=== PATIENT | female | born 1990 | race Caucasian/White ===

== ENCOUNTER 2017-01-26 11:26 | Observation (INO) | payer SELFPAY ==
[~2017-01-26] VITALS: Ht 165.1 cm; Wt 79.4 kg
[2017-01-26 12:03] LABS: BILIRUBIN,URINE NEGATIVE (NEG); GLUCOSE,URINE NEGATIVE (NEG); NITRITE,URINE NEGATIVE (NEG); PH,URINE 6.5; PROTEIN,URINE NEGATIVE (NEG-TRACE)
--- NOTE | 2017-01-26 12:04 | PHYS DOC ---
Past Medical History Past Medical History: No Pertinent History Past Surgical History: Alcohol Use: None Drug Use: None Adult General Chief Complaint Chief Complaint: VAGINAL BLEEDING HPI HPI Patient is a 26 year old female presents to the emergency department with complaints of lower abdominal cramping and vaginal bleeding. She reports that she was and January 07 had a miscarriage. She states she was seen at [facility] at that time. She states she has had vaginal bleeding since January 07. She notes her last normal menstrual period prior to December a miscarriage was December 02. She states that she continues to have nausea. She denies chest pain, lightheadedness, dizziness. 7 para 3 SpAB 2 TAB 1 Review of Systems Review of Systems Constitutional: Denies fever or chills [] Eyes: Denies change in visual acuity, redness, or eye pain [] HENT: Denies nasal congestion or sore throat [] Respiratory: Denies cough or shortness of breath [] Cardiovascular: No additional information not addressed in HPI [] GI: Denies abdominal pain, nausea, vomiting, bloody stools or diarrhea [] : vaginal bleeding Musculoskeletal: Denies back pain or joint pain [] Integument: Denies rash or skin lesions [] Neurologic: Denies headache, focal weakness or sensory changes [] Endocrine: Denies polyuria or polydipsia [] Current Medications Current Medications Current Medications Medications (Trade) Dose Ordered Sig/Marilee Start Time Stop Time Status Last Admin Dose Admin Dexamethasone Sodium Phosphate (Decadron) 20 mg STK-MED ONCE 01/26/17 14:24 01/26/17 14:25 DC Famotidine (Pepcid) 20 mg STK-MED ONCE 01/26/17 14:24 01/26/17 14:25 DC Fentanyl Citrate (Fentanyl 2ml Vial) 100 mcg STK-MED ONCE 01/26/17 14:24 01/26/17 14:25 DC Lidocaine HCl (Lidocaine Pf 2% Vial) 5 ml STK-MED ONCE 01/26/17 14:24 01/26/17 14:25 DC Midazolam HCl (Versed) 2 mg STK-MED ONCE 01/26/17 14:24 01/26/17 14:25 DC Ondansetron HCl (Zofran) 4 mg STK-MED ONCE 01/26/17 14:24 01/26/17 14:25 DC Propofol 20 ml @ As Directed STK-MED ONCE 01/26/17 14:23 01/26/17 14:24 DC Succinylcholine Chloride (Anectine) 200 mg STK-MED ONCE 01/26/17 14:24 01/26/17 14:25 DC Allergies Allergies Allergies Coded Allergies Type Severity Reaction Last Updated Verified No Known Drug Allergies 01/26/17 No Physical Exam Physical Exam Constitutional: Well developed, well nourished, no acute distress, non-toxic appearance. [] HENT: Normocephalic, atraumatic, bilateral external ears normal, oropharynx moist, no oral exudates, nose normal. [] Eyes: PERRLA, EOMI, conjunctiva normal, no discharge. [] Neck: Normal range of motion, no tenderness, supple, no stridor. [] Cardiovascular:Heart rate regular rhythm, no murmur [] Lungs & Thorax: Bilateral breath sounds clear to auscultation [] Abdomen:soft, nontender. Bowel sounds normoactive. : Small amount of bloody discharge, cervix is excoriated. She has no cervical motion tenderness,right adenxal tenderness Skin: Warm, dry, no erythema, no rash. [] Back: No tenderness, no CVA tenderness. [] Extremities: No tenderness, no cyanosis, no clubbing, ROM intact, no edema. [] Neurologic: Alert and oriented X 3, normal motor function, normal sensory function, no focal deficits noted. [] Psychologic: Affect normal, judgement normal, mood normal. [] Current Patient Data Vital Signs Vital Signs Date Time Temp Pulse Resp B/P (MAP) Pulse Ox O2 Delivery O2 Flow Rate FiO2 01/26/17 14:27 88 16 110/64 (79) 99 Room Air 01/26/17 11:38 98.6 98.6 Lab Values Laboratory Tests Test 01/26/17 10:54 01/26/17 11:50 01/26/17 12:00 01/26/17 12:45 POC Urine HCG, Qualitative Hcg positive (Negative) Urine Collection Type Unknown Urine Color Yellow Urine Clarity Clear Urine pH 6.5 Urine Specific [place] 1.020 Urine Protein Negative mg/dL (NEG-TRACE) Urine Glucose (UA) Negative mg/dL (NEG) Urine Ketones (Stick) Negative mg/dL (NEG) Urine Blood Large (NEG) Urine Nitrite Negative (NEG) Urine Bilirubin Negative (NEG) Urine Urobilinogen Dipstick 1.0 mg/dL (0.2 mg/dL) Urine Leukocyte Esterase Moderate (NEG) Urine RBC 0 /HPF (0-2) Urine WBC 20-40 /HPF (0-4) Urine Squamous Epithelial Cells Mod /LPF Urine Bacteria 0 /HPF (0-FEW) Urine Mucus Marked /LPF Urine Test Positive (NEG) Maternal Serum HCG Beta Subunit 66003 mIU/mL (0-5) H EKG EKG [] Radiology/Procedures Radiology/Procedures []IMAGING REPORT Signed PATIENT: GABINO PETERSON ACCOUNT: [id number] : 1990 LOCATION: ER AGE: 26 SEX: F EXAM STATUS: REG ER ORD. PHYSICIAN: MAU MARINO APRN REASON: preg, bleed PROCEDURE: OB <14 WKS W/TV Indication: Gravid female with vaginal bleeding. The uterus measures 8.6 x 5.2 x 6.1 cm. The endometrium is distorted. Endometrium does appear to be heterogeneous and may contain blood products. There appears to be complex fluid in the endometrium. There appears to be a gestational sac in the right adnexa. The crown-rump length measurement is 2.1 cm consistent with 8 weeks 5 days gestation. heart rate was recorded at 178 bpm. The left ovary is unremarkable apart from a small 1.5 cm cyst. There is some complex free fluid in the pelvis. Impression: Right adnexal gestational sac containing a pole with heart rate of 178 bpm. Findings are consistent with a live right adnexal . No intrauterine gestational sac is present. There are blood products within the endometrium. There is also complex free fluid within the pelvis and right adnexa, suggestive of ruptured ectopic. No other significant abnormality is detected. Results were called to the emergency department prior to this dictation. DICTATED and SIGNED BY: ELIANE CAMARGO MD DATE: 01/26/17 4954 CC: NO PCP; NON,STAFF; MAU MARINO APRN ~ Course & Med Decision Making Course & Med Decision Making B Positive UCG positive Pertinent Labs and Imaging studies reviewed. (See chart for details) 1350: Dr. Delgadillo paged 1400: Dr. Delgadillo returned call. Pt to remain NPO, prep for surgery 1400: Anesth. paged and notified for immediate need of surgery. Patient advised of diagnosis and plan. She and her verbalized understanding and are in agreement with the plan [] Dragon Disclaimer Dragon Disclaimer This electronic medical record was generated, in whole or in part, using a voice recognition dictation system. Departure Departure Impression: Primary Impression: Tubal ectopic Disposition: ADMITTED INPATIENT Admitting Physician: Other Condition: STABLE (Dr. Delgadillo) MAU MARINO APRN Jan 26, 2017 12:04
[2017-01-26 12:12] LABS: BACTERIA,URINE 0 /HPF (0-FEW); RBC,URINE 0 /HPF (0-2); SQUAMOUS EPITHELIAL CELL,UR MOD /LPF; WBC,URINE 20-40 /HPF (0-4)
[2017-01-26 12:27] LABS: NEG OBC UR NEG; POS OBC UR POS
--- NOTE | 2017-01-26 13:45 | RAD ---
Indication: Gravid female with vaginal bleeding. The uterus measures 8.6 x 5.2 x 6.1 cm. The endometrium is distorted. Endometrium does appear to be heterogeneous and may contain blood products. There appears to be complex fluid in the endometrium. There appears to be a gestational sac in the right adnexa. The crown-rump length measurement is 2.1 cm consistent with 8 weeks 5 days gestation. heart rate was recorded at 178 bpm. The left ovary is unremarkable apart from a small 1.5 cm cyst. There is some complex free fluid in the pelvis. Impression: Right adnexal gestational sac containing a pole with heart rate of 178 bpm. Findings are consistent with a live right adnexal . No intrauterine gestational sac is present. There are blood products within the endometrium. There is also complex free fluid within the pelvis and right adnexa, suggestive of ruptured ectopic. No other significant abnormality is detected. Results were called to the emergency department prior to this dictation.
[2017-01-26] MEDS ORDERED: PROPOFOL 20 ML IV ONE (14:23)
[2017-01-26] MEDS ORDERED: SUCCINYLCHOLINE 200 MG/10 ML VIAL. ONE (14:24)
[2017-01-26] MEDS ORDERED: DEXAMETHASONE SOD PHOS 20 MG/5 ML VIAL. ONE (14:24)
[2017-01-26] MEDS ORDERED: MIDAZOLAM HCL/PF 2 MG/2 ML VIAL. ONE (14:24)
[2017-01-26] MEDS ORDERED: ONDANSETRON PF 4 MG/2 ML VIAL. ONE (14:24)
[2017-01-26] MEDS ORDERED: fentaNYL PF VIAL 100 MCG/2 ML VIAL ONE (14:24)
[2017-01-26] MEDS ORDERED: FAMOTIDINE 20 MG/2 ML VIAL ONE (14:24)
[2017-01-26] MEDS ORDERED: LIDOCAINE 2% PF Vial for OR 5 ML VIAL. ONE (14:24)
[2017-01-26 14:27] LABS: BASO % 0 % (0-3); EOS % 3 % (0-3); HEMATOCRIT 32.2 % (36.0-47.0); HEMOGLOBIN 10.9 g/dL (12.0-15.5); LYMPH # 2.2 x10^3/uL (1.0-4.8); LYMPH % 20 % (24-48); MEAN CORPUSCULAR HEMOGLOBIN 28 pg (25-35); MEAN CORPUSCULAR HGB CONC 34 g/dL (31-37); MEAN CORPUSCULAR VOLUME 84 fL (79-100); MONO % 8 % (0-9); NEUT % 70 % (31-73); PLATELET COUNT 519 x10^3/uL (140-400); RED BLOOD COUNT 3.86 x10^6/uL (3.50-5.40); RED CELL DISTRIBUTION WIDTH 14.7 % (11.5-14.5); WHITE BLOOD COUNT 11.1 x10^3/uL (4.0-11.0)
[2017-01-26 14:30] LABS: CALCIUM 9.1 mg/dL (8.5-10.1); CREATININE 0.7 mg/dL (0.6-1.0); GFR 100.4; POTASSIUM 3.8 mmol/L (3.5-5.1)
[2017-01-26] MEDS ORDERED: BUPIVACAINE-EPI 0.5%-1:200000 50 ML VIAL. ONE (14:32)
[2017-01-26 14:37] LABS: ALBUMIN 3.2 g/dL (3.4-5.0); ALBUMIN/GLOBULIN RATIO 0.8 (1.0-1.7); TOTAL BILIRUBIN 0.2 mg/dL (0.2-1.0); TOTAL PROTEIN 7.1 g/dL (6.4-8.2)
[2017-01-26] MEDS ORDERED: ROCURONIUM 50 MG/5 ML VIAL. ONE (14:47)
[2017-01-26] MEDS ORDERED: DESFLURANE 16 TO 30 MINUTES. IH ONE (15:29)
[2017-01-26] MEDS ORDERED: GLYCOPYRROLATE 1 MG/5 ML VIAL. ONE (15:50)
[2017-01-26] MEDS ORDERED: NEOSTIGMINE METHYLSULFATE 5 MG/5 ML SYRINGE. ONE (15:50)
--- NOTE | 2017-01-26 17:07 | PDOC ---
BRIEF OPERATIVE NOTE Pre-Op Diagnosis Ectopic Post-Op Diagnosis Same Procedure Performed Laparoscopic R salpingectomy Surgeon Leona Anesthesia Type: General Blood Loss 20cc Specimens Obtained R ova duct and ectopic Complications None PHOEBE SO MD Jan 26, 2017 17:07
[2017-01-26] MEDS: fentaNYL PF VIAL 100 MCG/2 ML VIAL IV PRN ×4 (17:09→17:38)
[2017-01-26] MEDS ORDERED: ONDANSETRON PF 4 MG/2 ML VIAL. IV PRN ×2 (17:15)
[2017-01-26] MEDS ORDERED: oxyCODONE/APAP 5/325 1 TAB TABLET PO PRN (17:15)
[2017-01-26] MEDS ORDERED: oxyCODONE IR 5 MG TABLET PO PRN (17:15)
[2017-01-26] MEDS ORDERED: METOCLOPRAMIDE HCL 10 MG/2 ML VIAL. IV PRN (17:15)
[2017-01-26] MEDS ORDERED: diphenhydrAMINE HCL 25 MG CAPSULE PO PRN (17:15)
[2017-01-26] MEDS ORDERED: 0.9 % SODIUM CHLORIDE 10 ML DISP.SYRIN. IV PRN (17:15)
[2017-01-26] MEDS ORDERED: MEPERIDINE PF 25 MG/ML VIAL. IV PRN (17:15)
[2017-01-26] MEDS ORDERED: fentaNYL PF VIAL 100 MCG/2 ML VIAL IV PRN (17:15)
[2017-01-26] MEDS ORDERED: diphenhydrAMINE 50 MG/ML VIAL IV PRN (17:15)
[2017-01-26] MEDS ORDERED: MAG HYDROX/ALUMINUM HYD/SIMETH 30 ML ORAL.SUSP PO PRN (17:15)
[2017-01-26] MEDS ORDERED: MORPHINE SULFATE 2 MG/ML DISP.SYRIN. IV PRN ×2 (17:15)
[2017-01-26] MEDS ORDERED: DEXTROSE 50% 25 GM / 50ML DISP.SYRIN. IV PRN (17:15)
[2017-01-26] MEDS: HYDROmorphone 2 MG/ML VIAL IV PRN ×2 (17:50→18:01)
[2017-01-26 18:35] VITALS: BP 119/69
[2017-01-26 18:50] VITALS: BP 120/66
[2017-01-26 19:05] VITALS: BP 114/67
[2017-01-26 19:20] VITALS: BP 122/73
[2017-01-26] MEDS: oxyCODONE/APAP 5/325 1 TAB TABLET PO PRN (19:34)
[2017-01-26 19:50] VITALS: BP 122/70
[2017-01-26 22:28] VITALS: BP 115/68
[2017-01-27] MEDS: oxyCODONE/APAP 5/325 1 TAB TABLET PO PRN ×3 (00:16→08:14)
[2017-01-27 04:05] VITALS: BP 113/62
[2017-01-27 08:34] LABS: BASO % 0 % (0-3); EOS % 0 % (0-3); HEMATOCRIT 32.2 % (36.0-47.0); HEMOGLOBIN 10.4 g/dL (12.0-15.5); LYMPH # 2.3 x10^3/uL (1.0-4.8); LYMPH % 15 % (24-48); MEAN CORPUSCULAR HEMOGLOBIN 28 pg (25-35); MEAN CORPUSCULAR HGB CONC 32 g/dL (31-37); MEAN CORPUSCULAR VOLUME 86 fL (79-100); MONO % 6 % (0-9); NEUT % 78 % (31-73); PLATELET COUNT 485 x10^3/uL (140-400); RED BLOOD COUNT 3.76 x10^6/uL (3.50-5.40); RED CELL DISTRIBUTION WIDTH 14.2 % (11.5-14.5)
[2017-01-27 08:52] LABS: ALBUMIN/GLOBULIN RATIO 0.9 (1.0-1.7); CALCIUM 8.9 mg/dL (8.5-10.1); CREATININE 0.6 mg/dL (0.6-1.0); GFR 119.9; TOTAL BILIRUBIN 0.2 mg/dL (0.2-1.0); TOTAL PROTEIN 6.4 g/dL (6.4-8.2)
[2017-01-27 08:55] LABS: POTASSIUM 4.1 mmol/L (3.5-5.1)
--- NOTE | 2017-01-27 10:36 | PDOC3 ---
OB DISCHARGE SUMMARY DATE OF ADMISSION: 01/26/17 DATE OF DISCHARGE: 01/27/17 REASON FOR ADMISSION: Vaginal bleeding, Other (Ectopic) PROCEDURES: Ultrasound, Mgmt of OB Complications INTRAPARTUM PROCEDURES: Others (Dx laparoscopy) OPERATIONS: None PROBLEM LIST AT DISCHARGE Problems Medical Problems: (1) Tubal ectopic Status: Acute DISCHARGE INFORMATION: Activity, Diet HOSPITAL COURSE Unremarkable CONDITION AT DISCHARGE Stable PHOEBE SO MD Jan 27, 2017 10:36
[2017-01-27] MEDS ORDERED: OXYC-323 PO (10:38)
[2017-01-27] MEDS ORDERED: NAPR500T3 PO (10:38)
[2017-01-27 11:50] VITALS: BP 114/63
--- NOTE | 2017-02-01 08:38 | PATHOLOGY ---
PATHOLOGY REPORT * * * * * * * * FINAL DIAGNOSIS: Fallopian tube, right salpingectomy: - Ectopic tubal , ruptured. - Hematosalpinx. (JPM/db; 01/30/2017) REPORT ELECTRONICALLY SIGNED BY: Calderon Cho M.D. DATE/TIME: 02/01/2017 08:38 * * * * * * * * GROSS PATHOLOGY: The specimen is received in formalin labeled "Floresita Blake, right tube and ectopic". Received is a 21 g non-fimbriated, previously ruptured fallopian tube measuring 5.8 cm in length by up to 2.7 cm in diameter. At the distal most aspect of the specimen, there is a large amount of pink-sanches spongiform tissue present surrounding the previously ruptured gestational sac measuring 2.5 x 2.0 x 1.9 cm in aggregate dimensions. Further opening of the gestational sac reveals a fetus displaying both arms and both legs, however, is missing the head. The foot measurement is approximately 0.4 cm. The crown-rump measurement cannot be determined. Sectioning through the fallopian tube reveals a severely dilated lumen which has ruptured at the distal aspect. The specimen is submitted representatively in cassettes A1 through A3. The fetus is retained within the specimen container for further identification if necessary. (CAA; 01/28/2017) INITIAL CPT CODE(S): A; 01907 Professional services performed by [employer] ([facility] [place] [address] Technical services performed by [employer] ([employer] at [address] [place] [address], [address], [place] [address]. SPECIMEN(S) RECEIVED: A.Right tube and ectopic CLINICAL HISTORY: Right ectopic PATIENT: FLORESITA BLAKE /AGE: 1 1990 (Age: 26) PATIENT #: [id number] ALT CASE #: SPECIMEN COLLECTION DATE: 01/26/2017 SPECIMEN RECEIVED DATE: 01/27/2017 [facility] [place] [address] - PHONE: [phone] * * * END OF REPORT * * *
== END 2017-01-27 12:50 | disposition home or self-care (01) ==
LOC: ER 11:26 → 3 NORTH 14:10 → ER 14:25 → 3 NORTH 14:27
PROVIDERS: ADMIT Specialist; ATTEND Specialist
DX: O00.10 Tubal pregnancy without intrauterine pregnancy (principal); Z3A.08 8 weeks gestation of pregnancy
CPT/HCPCS: 36415; 59151; 76801; 76817; 80053; 81001; 81025; 84702; 85027; 86850; 86900; 86901; 87491; 87591; 88305; C1769; G0378; G0379; J0330; J1100; J1170; J2250; J2405; J2704; J2710; J3010; J3490; J7030; Q0111; S0028

== ENCOUNTER 2017-04-10 18:29 | Emergency (ER) | payer SELFPAY ==
[~2017-04-10 18:29] MED LIST: NAPR500T3 PO; OXYC-323 PO
[2017-04-10] MEDS ORDERED: IOHEXOL 300 MG/ML 75 ML VIAL IV ONE (19:30)
[2017-04-10 19:41] LABS: BASO % 1 % (0-3); EOS % 6 % (0-3); HEMATOCRIT 35.2 % (36.0-47.0); HEMOGLOBIN 11.9 g/dL (12.0-15.5); LYMPH # 2.9 x10^3/uL (1.0-4.8); LYMPH % 32 % (24-48); MEAN CORPUSCULAR HEMOGLOBIN 28 pg (25-35); MEAN CORPUSCULAR HGB CONC 34 g/dL (31-37); MEAN CORPUSCULAR VOLUME 83 fL (79-100); MONO % 9 % (0-9); NEUT % 53 % (31-73); PLATELET COUNT 589 x10^3/uL (140-400); RED BLOOD COUNT 4.25 x10^6/uL (3.50-5.40); RED CELL DISTRIBUTION WIDTH 14.3 % (11.5-14.5); WHITE BLOOD COUNT 9.2 x10^3/uL (4.0-11.0)
[2017-04-10 19:43] LABS: BILIRUBIN,URINE NEGATIVE (NEG); GLUCOSE,URINE NEGATIVE (NEG); NITRITE,URINE NEGATIVE (NEG); PROTEIN,URINE NEGATIVE (NEG-TRACE); UROBILINOGEN,URINE 0.2 mg/dL (0.2 mg/dL)
[2017-04-10 19:51] LABS: BACTERIA,URINE FEW /HPF (0-FEW); RBC,URINE 0 /HPF (0-2); SQUAMOUS EPITHELIAL CELL,UR MANY /LPF
[2017-04-10 19:52] LABS: CALCIUM 9.1 mg/dL (8.5-10.1); CREATININE 0.8 mg/dL (0.6-1.0); POTASSIUM 4.3 mmol/L (3.5-5.1)
[2017-04-10 19:58] LABS: ALBUMIN 3.4 g/dL (3.4-5.0); ALBUMIN/GLOBULIN RATIO 0.9 (1.0-1.7); TOTAL BILIRUBIN 0.1 mg/dL (0.2-1.0); TOTAL PROTEIN 7.2 g/dL (6.4-8.2)
[2017-04-10] MEDS ORDERED: KETOROLAC 30 MG/ML INJ. IV ONE (20:00)
[2017-04-10] MEDS ORDERED: fentaNYL PF VIAL 100 MCG/2 ML VIAL IV PRN (20:45)
--- NOTE | 2017-04-10 21:10 | RAD ---
CT of the abdomen and pelvis with contrast, 04/10/2017: HISTORY: Back pain, previous surgery Multidetector CT imaging was performed following an IV bolus injection of iodinated contrast material. The liver is unremarkable. No gallbladder abnormality is seen. The pancreas shows no abnormality. The spleen is within normal limits in size. There is a 14 mm calculus in the lower pole of the right kidney. The renal collecting systems and ureters are not dilated. No left renal calculus is evident. A lower pelvic calcification on the right is probably a phlebolith. No ureteral calculus is identified. The abdominal aorta is of normal caliber. No abdominal or pelvic adenopathy is seen. The bowel loops are not dilated. A small portion of what is probably the appendix is visualized and it is unremarkable. There is no pericecal inflammation. No free air or significant free fluid is evident in the abdomen or pelvis. IMPRESSION: 1. Nonobstructing right intrarenal calculus. 2. No acute abdominal or pelvic abnormality is detected. Electronically signed by: Abundio Sharif MD (04/10/2017 9:07 PM) [facility]
[2017-04-10 21:11] VITALS: BP 109/55
[2017-04-10] MEDS ORDERED: LEVO750T31 PO (21:26)
[2017-04-10] MEDS ORDERED: HYDR-971 PO (21:26)
--- NOTE | 2017-04-10 21:26 | PHYS DOC ---
Past Medical History Past Medical History: Ectopic Past Surgical History: , Other Additional Past Surgical Histo: ectopic preg Alcohol Use: None Drug Use: None Adult General Chief Complaint Chief Complaint: ABDOMINAL PAIN HPI HPI Patient is a 26 year old female who presents with abdominal pain. The patient states 2 months ago she underwent laparoscopic right salpingectomy for ruptured ectopic . She states ever since surgery she has had gradually worsening severe abdominal pain associated with flank pain. She states the pain essentially radiates to her entire body. She feels nauseated. She denies fever, vomiting, diarrhea, dysuria, hematuria. She also has history of c- section. Her surgeon was Dr. Delgadillo; she has not followed up in the clinic because she could not schedule an appointment. She is distressed because she thought she would have the option to have the fetus implanted into her uterus at the time of surgery, & she is tearful at the time of my exam because nobody asked her if she wanted to keep her baby. Review of Systems Review of Systems Constitutional: Denies fever or chills HENT: Denies nasal congestion or sore throat Respiratory: Denies cough or shortness of breath Cardiovascular: Denies chest pain or edema GI: Reports abdominal pain, nausea, denies vomiting, bloody stools or diarrhea : Denies dysuria or hematuria Musculoskeletal: Reports back pain Integument: Denies rash or skin lesions Neurologic: Denies headache, focal weakness or sensory changes Current Medications Current Medications Current Medications Medications (Trade) Dose Ordered Sig/Marilee Start Time Stop Time Status Last Admin Dose Admin Ceftriaxone Sodium 50 ml @ 100 mls/hr 1X ONCE 04/10/17 21:00 04/10/17 21:29 DC 04/10/17 20:41 100 MLS/HR Fentanyl Citrate (Fentanyl 2ml Vial) 50 mcg PRN Q15MIN PRN 04/10/17 20:45 04/10/17 21:47 DC 04/10/17 20:59 50 MCG Iohexol (Omnipaque 300 Mg/ml) 75 ml 1X ONCE 04/10/17 19:30 04/10/17 19:33 DC 04/10/17 19:30 75 ML Ketorolac Tromethamine (Toradol) 30 mg 1X ONCE 04/10/17 20:00 04/10/17 20:01 DC 04/10/17 19:44 30 MG Lorazepam (Ativan) 1 mg 1X ONCE 04/10/17 20:00 04/10/17 20:01 DC 04/10/17 19:44 1 MG Allergies Allergies Allergies Coded Allergies Type Severity Reaction Last Updated Verified No Known Drug Allergies 01/26/17 No Physical Exam Physical Exam Constitutional: Well developed, well nourished, hyperventilating, sobbing HENT: Normocephalic, atraumatic, bilateral external ears normal, oropharynx moist, nose normal. Eyes: PERRLA, EOMI, conjunctiva normal, no discharge. Neck: supple, no stridor. no meningismus Cardiovascular: RRR, no murmurs, no edema. Lungs & Thorax: LCTAB, no wheezing, no respiratory distress. Abdomen: soft, diffuse abdominal tenderness with palpation in all 4 quadrants with voluntary guarding, no rebound tenderness, no masses or pulsatile masses, nondistended. Skin: Warm, dry, no erythema, no rash. Back: bilateral CVA tenderness. Extremities: No tenderness, no edema. Neurologic: Alert and oriented X 3, no focal deficits noted. Psychologic: anxious, tearful Current Patient Data Vital Signs Vital Signs Date Time Temp Pulse Resp B/P (MAP) Pulse Ox O2 Delivery O2 Flow Rate FiO2 04/10/17 21:11 85 16 109/55 (73) 97 Room Air 04/10/17 18:40 98.0 98.0 Lab Values Laboratory Tests Test 04/10/17 18:17 04/10/17 18:40 04/10/17 19:30 POC Urine HCG, Qualitative Hcg negative (Negative) Urine Collection Type Unknown Urine Color Yellow Urine Clarity Clear Urine pH 6.0 Urine Specific [place] 1.020 Urine Protein Negative mg/dL (NEG-TRACE) Urine Glucose (UA) Negative mg/dL (NEG) Urine Ketones (Stick) Negative mg/dL (NEG) Urine Blood Negative (NEG) Urine Nitrite Negative (NEG) Urine Bilirubin Negative (NEG) Urine Urobilinogen Dipstick 0.2 mg/dL (0.2 mg/dL) Urine Leukocyte Esterase Moderate (NEG) Urine RBC 0 /HPF (0-2) Urine WBC 11-20 /HPF (0-4) Urine Squamous Epithelial Cells Many /LPF Urine Bacteria Few /HPF (0-FEW) Urine Mucus Marked /LPF White Blood Count 9.2 x10^3/uL (4.0-11.0) Red Blood Count 4.25 x10^6/uL (3.50-5.40) Hemoglobin 11.9 g/dL (12.0-15.5) L Hematocrit 35.2 % (36.0-47.0) L Mean Corpuscular Volume 83 fL (79-100) Mean Corpuscular Hemoglobin 28 pg (25-35) Mean Corpuscular Hemoglobin Concent 34 g/dL (31-37) Red Cell Distribution Width 14.3 % (11.5-14.5) Platelet Count 589 x10^3/uL (140-400) H Neutrophils (%) (Auto) 53 % (31-73) Lymphocytes (%) (Auto) 32 % (24-48) Monocytes (%) (Auto) 9 % (0-9) Eosinophils (%) (Auto) 6 % (0-3) H Basophils (%) (Auto) 1 % (0-3) Neutrophils # (Auto) 4.8 x10^3uL (1.8-7.7) Lymphocytes # (Auto) 2.9 x10^3/uL (1.0-4.8) Monocytes # (Auto) 0.8 x10^3/uL (0.0-1.1) Eosinophils # (Auto) 0.6 x10^3/uL (0.0-0.7) Basophils # (Auto) 0.0 x10^3/uL (0.0-0.2) Sodium Level 137 mmol/L (136-145) Potassium Level 4.3 mmol/L (3.5-5.1) Chloride Level 104 mmol/L (98-107) Carbon Dioxide Level 25 mmol/L (21-32) Anion Gap 8 (6-14) Blood Urea Nitrogen 13 mg/dL (7-20) Creatinine 0.8 mg/dL (0.6-1.0) Estimated GFR (Cockcroft-Gault) 86.0 BUN/Creatinine Ratio 16 (6-20) Glucose Level 101 mg/dL (70-99) H Calcium Level 9.1 mg/dL (8.5-10.1) Total Bilirubin 0.1 mg/dL (0.2-1.0) L Aspartate Amino Transferase (AST) 21 U/L (15-37) Alanine Aminotransferase (ALT) 35 U/L (14-59) Alkaline Phosphatase 77 U/L (46-116) Total Protein 7.2 g/dL (6.4-8.2) Albumin 3.4 g/dL (3.4-5.0) Albumin/Globulin Ratio 0.9 (1.0-1.7) L Lipase 158 U/L (73-393) Laboratory Tests 04/10/17 19:30 Laboratory Tests 04/10/17 19:30 EKG EKG [] Radiology/Procedures Radiology/Procedures PROCEDURE: CT ABD PELV W/ IV CONTRST ONLY CT of the abdomen and pelvis with contrast, 04/10/2017: HISTORY: Back pain, previous surgery Multidetector CT imaging was performed following an IV bolus injection of iodinated contrast material. The liver is unremarkable. No gallbladder abnormality is seen. The pancreas shows no abnormality. The spleen is within normal limits in size. There is a 14 mm calculus in the lower pole of the right kidney. The renal collecting systems and ureters are not dilated. No left renal calculus is evident. A lower pelvic calcification on the right is probably a phlebolith. No ureteral calculus is identified. The abdominal aorta is of normal caliber. No abdominal or pelvic adenopathy is seen. The bowel loops are not dilated. A small portion of what is probably the appendix is visualized and it is unremarkable. There is no pericecal inflammation. No free air or significant free fluid is evident in the abdomen or pelvis. IMPRESSION: 1. Nonobstructing right intrarenal calculus. 2. No acute abdominal or pelvic abnormality is detected. Electronically signed by: Abundio Sharif MD (04/10/2017 9:07 PM) [facility] DICTATED and SIGNED BY: ABUNDIO SHARIF MD DATE: 04/10/172100[] Course & Med Decision Making Course & Med Decision Making Pertinent Labs and Imaging studies reviewed. (See chart for details) The patient presents with postoperative abdominal pain. She was tachycardic & hyperventilating during my initial encounter, but was able to have her family join her & relaxed with normalization of heart rate. Nonfocal abdominal exam but diffusely tender Gave pain medication, labs unremarkable, has UTI which will be treated as pyelonephritis in the setting of flank pain. Gave rocephin, obtained CT due to persistent abdominal pain. No focal findings identified. Discussed results at length with the patient. Would be valuable to follow up with Dr. Delgadillo to have additional questions answered & address possible causes identified here. We discussed whether stress might be contributing because she is very upset about losing the baby. I attempted to reassure her that unfortunately there was no way that the baby could have lived. Gave prescriptions for levaquin & norco, recommend rest, hydration, follow up as soon as possible with Dr. Delgadillo. Come back for high fever, severe pain, uncontrolled vomiting, any otherwise worsening condition. Discharged home in stable condition. [] Dragon Disclaimer Dragon Disclaimer This electronic medical record was generated, in whole or in part, using a voice recognition dictation system. Departure Departure Impression: Primary Impression: Acute pyelonephritis Additional Impression: Abdominal pain Disposition: HOME, SELF-CARE Condition: STABLE Referrals: PHOEBE DELGADILLO MD Patient Instructions: Ectopic Additional Instructions: You were seen in the emergency department today for abdominal and back pain. You have a kidney infection. Please take the prescribed antibiotic. Drink fluids to stay hydrated. Take Tylenol or ibuprofen for pain. Follow-up with Dr. Delgadillo in the OB clinic. Return to the emergency department for high fever, severe pain, uncontrolled vomiting, any otherwise worsening condition. Scripts Hydrocodone/Apap 5-325 (NORCO 5-325 TABLET) 1 Each Tablet 1 TAB PO PRN Q6HRS Y for PAIN, #10 TAB 0 Refills Prov: GRETA SÁNCHEZ MD 04/10/17 Levofloxacin (LEVAQUIN) 750 Mg Tablet 1 TAB PO DAILY, #5 TAB Prov: GRETA SÁNCHEZ MD 04/10/17 Problem Qualifiers GRETA SÁNCHEZ MD Apr 10, 2017 21:26
== END 2017-04-10 21:30 | disposition home or self-care (01) ==
LOC: ER 18:29
DX: G89.18 Other acute postprocedural pain (principal); N10 Acute pyelonephritis; R06.4 Hyperventilation; Z90.721 Acquired absence of ovaries, unilateral
CPT/HCPCS: 36415; 74177; 80053; 81001; 81025; 83690; 85025; 87086; 96365; 96375; 99285; J0690; J1885; J2060; J3010; Q9967

== ENCOUNTER 2017-06-13 21:07 | Emergency (ER) | payer BC ==
[~2017-06-13] VITALS: Ht 162.6 cm; Wt 83.9 kg
[~2017-06-13 21:07] MED LIST changes: +HYDR-971 PO; +LEVO750T31 PO; -NAPR500T3 PO; +NAPR500T4 PO
[2017-06-13 22:19] LABS: BILIRUBIN,URINE NEGATIVE (NEG); GLUCOSE,URINE NEGATIVE (NEG); NITRITE,URINE NEGATIVE (NEG); PH,URINE 6.5; PROTEIN,URINE NEGATIVE (NEG-TRACE)
[2017-06-13 22:23] LABS: BACTERIA,URINE FEW /HPF (0-FEW); RBC,URINE OCC /HPF (0-2); SQUAMOUS EPITHELIAL CELL,UR FEW /LPF; WBC,URINE 20-40 /HPF (0-4)
[2017-06-13] MEDS ORDERED: AMOX1TAB61 PO (22:39)
--- NOTE | 2017-06-13 22:40 | PHYS DOC ---
Past Medical History Past Medical History: Asthma, Ectopic , Migraines, Other Additional Past Medical Histor: HS Past Surgical History: , Other Additional Past Surgical Histo: ectopic preg Alcohol Use: None Drug Use: None Adult General Chief Complaint Chief Complaint: FLANK PAIN HPI HPI Patient is a 26 year old female who presents to the ED with 2 complaints. #1, she has a "lump" on the back of her head. She has had this for years. It comes and goes. When it flares up, it is very painful. No doctor has ever seemed to know what to do with it. It is bothering her right now and painful. #2, she believes she has a "severe kidney infection". Patient has had dysuria and sometimes it hurts so much when she urinates that it makes her nauseated. She has had blood in her urine intermittently. She has pain in her left flank and pain in the suprapubic area. Her LMP was 3 weeks ago. She is actively trying to get . She has been seen for these symptoms here, at [place], and at [facility]. She has been prescribed antibiotics but states that has never helped her symptoms. She has not been seen by a specialist. States she had a kidney stone on her right side about 8 years ago. She has not had persistent problems with kidney stones. She had a fever a few weeks ago. She has had nausea but no vomiting. PCP none. She recently got insurance. Review of Systems Review of Systems Constitutional: As in history of present illness Respiratory: Denies cough or shortness of breath [] GI: As in history of present illness : As in history of present illness Musculoskeletal: Left flank pain which does not sound musculoskeletal Integument: As in history of present illness for a painful area on the posterior scalp Neurologic: Denies headache, focal weakness or sensory changes [] All other systems were reviewed and found to be within normal limits, except as documented in this note. Allergies Allergies Allergies Coded Allergies Type Severity Reaction Last Updated Verified No Known Drug Allergies 01/26/17 No Physical Exam Physical Exam Constitutional: Obese female, vital signs stable, alert, mentating normally, warm and dry. HENT: bilateral external ears normal, oropharynx moist, no oral exudates, nose normal. On the left occipital scalp, there is an area of tenderness to palpation that does not appear to be red or swollen. There is no overlying skin abnormality, no induration or crepitance. There is a small palpable nodular area approximately 3 x 3 mm that does appear to be the area of maximum tenderness. Although palpable, it is not visible, it is not red. Eyes: conjunctiva normal, no discharge. [] Neck: Normal range of motion, no stridor. [] Cardiovascular:Heart rate regular rhythm, no murmur [] Lungs & Thorax: Bilateral breath sounds clear to auscultation [] Abdomen: Bowel sounds normal, soft, no masses, no pulsatile masses. Mild suprapubic tenderness to palpation. Skin: Warm, dry, no erythema, no rash. [] Back: No tenderness, no CVA tenderness. [] Extremities: No tenderness, no cyanosis, no clubbing, ROM intact, no edema. [] Neurologic: Alert and oriented X 3, normal motor function, no focal deficits noted. [] Current Patient Data Vital Signs Vital Signs Date Time Temp Pulse Resp B/P (MAP) Pulse Ox O2 Delivery O2 Flow Rate FiO2 06/13/17 21:45 98.5 99 18 135/90 (105) 98 Room Air 98.5 Lab Values Laboratory Tests Test 06/13/17 21:09 06/13/17 21:47 Urine Collection Type Unknown Urine Color Yellow Urine Clarity Clear Urine pH 6.5 Urine Specific [place] 1.025 Urine Protein Negative mg/dL (NEG-TRACE) Urine Glucose (UA) Negative mg/dL (NEG) Urine Ketones (Stick) Negative mg/dL (NEG) Urine Blood Negative (NEG) Urine Nitrite Negative (NEG) Urine Bilirubin Negative (NEG) Urine Urobilinogen Dipstick 1.0 mg/dL (0.2 mg/dL) Urine Leukocyte Esterase Moderate (NEG) Urine RBC Occ /HPF (0-2) Urine WBC 20-40 /HPF (0-4) Urine Squamous Epithelial Cells Few /LPF Urine Bacteria Few /HPF (0-FEW) Urine Mucus Marked /LPF POC Urine HCG, Qualitative Hcg negative (Negative) EKG EKG [] Radiology/Procedures Radiology/Procedures [] Course & Med Decision Making Course & Med Decision Making Pertinent Labs and Imaging studies reviewed. (See chart for details) 26-year-old female presents with 2 problems. #1, a tender lump on her occipital scalp that comes and goes. Today, she does not appear to have acute cellulitis or abscess. I suspect this is a sebaceous cyst that becomes inflamed and tender from time to time. I discussed this with the patient. See instructions for plan. Problem #2, urinary complaints. I reviewed the patient's last visit here on April 10. She did have CT scan of the abdomen and pelvis and she did have a nonobstructing renal stone on the right but no pathology on the left. I also reviewed lab testing and at that time her urinalysis appeared contaminated and she was treated for possible UTI with antibiotics, but her culture returned as negative for UTI. I discussed with the patient and her the significance of the urinalysis, culture results at that time. At this time the patient is actively trying to get . Her LMP was 3 weeks ago. For this reason alone, I'm very hesitant to CT scan her and also she recently had a CT scan for the same symptoms which did not reveal any finding. She is agreeable with holding off on CT scanning. We discussed urinalysis tonight. Tonight, her UA has only few epithelial cells and may be more consistent with infection than the previous one. Culture was ordered. I would like to cover the patient for possible UTI, inflamed or infected sebaceous cyst, keeping in mind that she may be or may get before her course of antibiotics is finished. For that reason, chose Augmentin. I discussed all of the above with the patient and encouraged her to follow up as an outpatient. See instructions for plan. [] Dragon Disclaimer Dragon Disclaimer This electronic medical record was generated, in whole or in part, using a voice recognition dictation system. Departure Departure Impression: Primary Impression: Dysuria Additional Impressions: Left flank pain Sebaceous cyst Disposition: 01 HOME, SELF-CARE Condition: STABLE Referrals: NO PCP (PCP) Patient Instructions: Flank Pain, [id number] Additional Instructions: Tonight, urinalysis is suspicious for possible bladder infection/urinary tract infection. I ordered a culture, and we will treat with antibiotics. As we discussed, follow-up with a specialist is important. You could start with [facility] or you could go to a urologist. For the sebaceous cyst, I am prescribing antibiotics that would cover that too. Apply heat 15-20 minutes out of every 1-2 hours. For this, you will need to see a general surgeon or event organizer. Scripts Amoxicillin/Potassium Clav (AUGMENTIN [id number] TABLET) 1 Each Tablet 1 TAB PO BID for UTI, skin infection, #20 TAB Prov: JANICE WAGNER MD 06/13/17 Problem Qualifiers JANICE WAGNER MD Jun 13, 2017 22:39
[2017-06-13 22:45] VITALS: BP 117/75
== END 2017-06-13 22:45 | disposition home or self-care (01) ==
LOC: ER 21:07
DX: L72.3 Sebaceous cyst (principal); R30.0 Dysuria; R10.9 Unspecified abdominal pain; J45.909 Unspecified asthma, uncomplicated; G43.909 Migraine, unspecified, not intractable, without status migrainosus; Z87.442 Personal history of urinary calculi; Z98.890 Other specified postprocedural states
CPT/HCPCS: 81001; 81025; 87086; 99284

== ENCOUNTER 2017-10-10 13:03 | Emergency (ER) | payer BC ==
[2017-10-10 13:37] LABS: BILIRUBIN,URINE SMALL (NEG); CLARITY,URINE CLOUDY; GLUCOSE,URINE NEGATIVE (NEG); NITRITE,URINE NEGATIVE (NEG); PH,URINE 5.5; PROTEIN,URINE 100 mg/dL (NEG-TRACE)
[2017-10-10 13:47] LABS: COLOR,URINE DK YELLOW
[2017-10-10 13:50] LABS: WBC,URINE >40 /HPF (0-4)
[2017-10-10 13:51] LABS: BACTERIA,URINE MODERATE /HPF (0-FEW); SQUAMOUS EPITHELIAL CELL,UR FEW /LPF
[2017-10-10] MEDS: ONDANSETRON PF 4 MG/2 ML VIAL. IV (14:00)
[2017-10-10] MEDS: IV NORMAL SALINE 1000ML BAG 1,000 ML IV (14:00)
[2017-10-10 14:34] LABS: ANION GAP 10 (6-14); BLOOD UREA NITROGEN 8 mg/dL (7-20); BUN/CREATININE RATIO 11 (6-20); CALCIUM 8.8 mg/dL (8.5-10.1); CARBON DIOXIDE 23 mmol/L (21-32); CHLORIDE 102 mmol/L (98-107); CREATININE 0.7 mg/dL (0.6-1.0); GFR 99.6; GLUCOSE 83 mg/dL (70-99); POTASSIUM 4.2 mmol/L (3.5-5.1); SODIUM 135 mmol/L (136-145)
[2017-10-10 14:37] LABS: ALBUMIN 2.9 g/dL (3.4-5.0); ALBUMIN/GLOBULIN RATIO 0.7 (1.0-1.7); ALK PHOS 67 U/L (46-116); ALT (SGPT) 17 U/L (14-59); AST (SGOT) 13 U/L (15-37); TOTAL BILIRUBIN 0.3 mg/dL (0.2-1.0); TOTAL PROTEIN 7.2 g/dL (6.4-8.2)
[2017-10-10] MEDS: IV DEXTROSE 5% - 0.9 % NACL 1,000 ML IV (15:15)
== END 2017-10-10 16:20 | disposition home or self-care (01) ==
LOC: ER 13:03
DX: O21.0 Mild hyperemesis gravidarum (principal); O23.41 Unspecified infection of urinary tract in pregnancy, first trimester; O99.511 Diseases of the respiratory system complicating pregnancy, first trimester; J45.909 Unspecified asthma, uncomplicated; O99.351 Diseases of the nervous system complicating pregnancy, first trimester; G43.909 Migraine, unspecified, not intractable, without status migrainosus; Z3A.13 13 weeks gestation of pregnancy
CPT/HCPCS: 36415; 80053; 81001; 87086; 96361; 96365; 96375; 99284; J0690; J2405; J7030; J7042

== ENCOUNTER 2018-01-08 14:50 | Observation (INO) | payer BC ==
[2018-01-08 15:21] LABS: BILIRUBIN,URINE NEGATIVE (NEG); CLARITY,URINE CLEAR; COLOR,URINE YELLOW; GLUCOSE,URINE NEGATIVE (NEG); NITRITE,URINE NEGATIVE (NEG); PROTEIN,URINE NEGATIVE (NEG-TRACE); UROBILINOGEN,URINE 0.2 mg/dL (0.2 mg/dL)
[2018-01-08 15:35] LABS: BACTERIA,URINE 0 /HPF (0-FEW); RBC,URINE 0 /HPF (0-2); SQUAMOUS EPITHELIAL CELL,UR MOD /LPF; WBC,URINE TNTC /HPF (0-4)
[2018-01-08 15:50] LABS: BARBITURATES NEG (NEG); BENZODIAZEPINES NEG (NEG); CANNABINOIDS NEG (NEG); COCAINE NEG (NEG); METHADONE NEG (NEG); OPIATES NEG (NEG); PHENCYCLIDINE NEG (NEG)
[2018-01-08 15:52] LABS: AMPHETAMINE/METHAMPHETAMINE NEG (NEG); ETHANOL, URINE NEG (NEG)
== END 2018-01-08 18:00 | disposition home or self-care (01) ==
LOC: 3 SO LND 14:50
DX: O62.9 Abnormality of forces of labor, unspecified (principal); Z3A.26 26 weeks gestation of pregnancy
CPT/HCPCS: 80307; 81001; 87086; G0378; G0379

== ENCOUNTER 2018-01-17 16:40 | Observation (INO) | payer BC ==
[2018-01-17 17:27] LABS: BILIRUBIN,URINE NEGATIVE (NEG); CLARITY,URINE CLEAR; COLOR,URINE YELLOW; GLUCOSE,URINE NEGATIVE (NEG); NITRITE,URINE NEGATIVE (NEG); PH,URINE 6.5; PROTEIN,URINE NEGATIVE (NEG-TRACE)
[2018-01-17 17:40] LABS: BACTERIA,URINE MODERATE /HPF (0-FEW); RBC,URINE 0 /HPF (0-2); SQUAMOUS EPITHELIAL CELL,UR FEW /LPF; WBC,URINE >40 /HPF (0-4)
== END 2018-01-17 19:07 | disposition home or self-care (01) ==
LOC: 3 SO LND 16:40
DX: Z34.93 Encounter for supervision of normal pregnancy, unspecified, third trimester (principal); Z3A.37 37 weeks gestation of pregnancy
CPT/HCPCS: 81001; 87086; G0378; G0379